=== PATIENT | female | born 1935 | race Two or more races ===

== ENCOUNTER 2018-06-16 16:44 | Emergency (ER) | payer OTHER, BC ==
[2018-06-16 17:46] VITALS: BMI 17.6
--- NOTE | 2018-06-16 17:48 | PDOC ---
Rapid Medical Evaluation Time Seen by Provider: 06/16/18 17:38 Medical Evaluation: Allergies Allergy/AdvReac Type Severity Reaction Status Date / Time codeine Allergy Verified 06/16/18 17:41 06/16/18 17:44 I have performed a brief in-person evaluation of this patient. The patient presents with a chief complaint of: Pt w/ h/o DM, diabetic foot ulcer p/w Left lower extremity swelling and discoloration with cold sensation in left lower extremity, sent by podiatry for admission under Dr. Soto Pertinent physical exam findings: mild swelling LLE with cold sensation, (+) bilateral LE hyperpigmentation I have ordered the following: CBC, CMP, PT/PTT The patient will proceed to the ED for further evaluation. 06/16/18 17:47 Discharge Disposition - Diagnosis Peripheral edema - Referrals Referrals: Christopher Soto MD [Primary Care Provider] - - Patient Instructions - Post Discharge Activity
[2018-06-16 18:04] LABS: BASO % 2.3 % (0-2.0); EOS % 2.5 % (0-4.5); HEMATOCRIT 32.9 % (32.4-45.2); HEMOGLOBIN 10.7 GM/dL (10.7-15.3); LYMPH % 15.7 % (8-40); MCH 30.9 pg (25.7-33.7); MCHC 32.4 g/dl (32.0-36.0); MEAN CELL VOLUME 95.4 fl (80-96); MEAN PLT VOLUME 7.4 fl (7.5-11.1); NEUT % 72.5 % (42.8-82.8); PLATELET COUNT 528 K/MM3 (134-434); RBC 3.45 M/mm3 (3.60-5.2); RDW 18.8 % (11.6-15.6); WHITE BLOOD COUNT 8.3 K/mm3 (4.0-10.0)
[2018-06-16 18:18] LABS: INR 1.49 (0.83-1.09); PROTHROMBIN TIME (PATIENT) 16.8 SEC (9.7-13.0)
[2018-06-16 18:20] LABS: ACTIVATED PTT 30.7 SECONDS (25.2-36.5)
[2018-06-16 18:59] LABS: ALBUMIN 2.9 g/dl (3.4-5.0); ALK PHOS 205 U/L (45-117); ANION GAP 4 MMOL/L (8-16); BILIRUBIN,TOTAL 0.6 mg/dL (0.2-1); BLOOD UREA NITROGEN 16 mg/dL (7-18); CALCIUM 8.5 mg/dL (8.5-10.1); CHLORIDE 105 mmol/L (98-107); CO2 29 mmol/L (21-32); CREATININE 0.5 mg/dL (0.55-1.3); GLUCOSE,RANDOM 155 mg/dL (74-106); POTASSIUM 5.5 mmol/L (3.5-5.1); SGOT/AST 34 U/L (15-37); SGPT/ALT 20 U/L (13-61); SODIUM 139 mmol/L (136-145); TOT PROT 6.1 g/dl (6.4-8.2)
--- NOTE | 2018-06-16 19:16 | PDOC ---
History of Present Illness - General Chief Complaint: Edema Stated Complaint: LEFT FOOT PAIN Time Seen by Provider: 06/16/18 17:38 History Source: Patient Exam Limitations: No Limitations - History of Present Illness Initial Comments: 82yo F with PMH of DM with peripheral neuropathy, stroke, pulmonary HTN, mixed connective tissue disease, Afib, previous PE with IVC filter, hip fracture s/p surgery on 05/30 presenting with left lower extremity swelling, pain, and coldness. Patient has experienced these symptoms since . Patient reports seeing her track production engineer today when he recommended that she come to the ED for coldness to her left leg as compared to her right. She has been immobile and in rehabilitation since her hip fracture about two weeks ago. Patient is able to move her lower limb and endorses normal sensation. She endorses left leg pain upon palpation and movement of the area. Denies fever, chills, chest pain, or shortness of breath. 06/16/18 20:10 Past History - Past Medical History Allergies/Adverse Reactions: Allergies Allergy/AdvReac Type Severity Reaction Status Date / Time codeine Allergy Verified 06/16/18 17:41 Home Medications: Ambulatory Orders Amiodarone HCl 1 tab PO DAILY 10/13/17 Denosumab [Prolia -] 60 mg SQ ASDIR 10/13/17 Exenatide Microspheres [Bydureon] 2 mg SQ WEEKLY 10/13/17 Warfarin Sodium [Coumadin] 5 tab PO DAILY 10/13/17 Zolpidem Tartrate [Ambien] 10 mg PO HS 10/13/17 predniSONE [Deltasone -] 1 tab PO DAILY 10/13/17 Cardiac Disorders: Yes (a fib-on coumadin) CVA: Yes COPD: No - Suicide/Smoking/Psychosocial Hx Smoking History: Never smoked Hx Alcohol Use: No Drug/Substance Use Hx: No Review of Systems - Review of Systems Comments:: Constitutional: no fever, no chills Cardiovascular: no chest pain, no palpitations Respiratory: no cough, no shortness of breath Gastrointestinal: no abdominal pain, no nausea, no vomiting Genitourinary: no dysuria, no frequency Musculoskeletal: +myalgia, +arthralgia Skin: no rash, no itching Neurologic: no headache, no dizziness *Physical Exam - Vital Signs Last Vital Signs Temp Pulse Resp BP Pulse Ox 99.3 F 90 20 146/68 99 06/16/18 17:42 06/16/18 17:42 06/16/18 17:42 06/16/18 17:42 06/16/18 17:42 - Physical Exam Comments: General: Awake, alert, and fully oriented, in no acute distress Head: no signs of trauma Eyes: EOMI, sclera anicteric ENT: moist mucus membranes, Neck: Normal ROM, supple Lungs: Lungs clear, Normal breath sounds Cardio: Regular rhythm, S1 and S2 present Abdomen: Soft, nontender Extremities: Lower extremity edema bilaterally L>R, Skin discoloration b/l from ankles to mid-upper calf; calves tender to palpation; Distal pulses present in all extremities; normal sensation SKIN: Warm, Dry, normal turgor, no rashes or lesions noted Neurologic: Cranial nerves II through XII grossly intact. Normal speech ED Treatment Course - LABORATORY CBC & Chemistry Diagram: 06/16/18 17:56 06/16/18 17:56 - ADDITIONAL ORDERS Additional order review: Laboratory Results 06/16/18 06/16/18 17:56 17:56 PT with INR 16.80 H INR 1.49 H PTT (Actin FS) 30.7 Sodium 139 Potassium 5.5 H Chloride 105 Carbon Dioxide 29 Anion Gap 4 L BUN 16 Creatinine 0.5 L Creat Clearance w eGFR > 60 Random Glucose 155 H Calcium 8.5 Total Bilirubin 0.6 AST 34 ALT 20 Alkaline Phosphatase 205 H Total Protein 6.1 L Albumin 2.9 L 06/16/18 17:56 RBC 3.45 L MCV 95.4 MCHC 32.4 RDW 18.8 H MPV 7.4 L D Neutrophils % 72.5 D Lymphocytes % 15.7 D Monocytes % 7.0 Eosinophils % 2.5 D Basophils % 2.3 H Medical Decision Making - Medical Decision Making 82yo F with left extremity swelling and pain. Distal pulses present. Neurovascularly intact. DVT study of left leg negative. INR noted to be subtherapeutic. 06/16/18 21:40 Laboratory Tests 06/16/18 06/16/18 06/16/18 17:56 17:56 17:56 WBC 8.3 RBC 3.45 L Hgb 10.7 Hct 32.9 D MCV 95.4 MCH 30.9 D MCHC 32.4 RDW 18.8 H Plt Count 528 H D MPV 7.4 L D Absolute Neuts (auto) 6.0 Total Counted 100 Neutrophils % 72.5 D Neutrophils % (Manual) 74.0 Lymphocytes % 15.7 D Lymphocytes % (Manual) 16.0 Monocytes % 7.0 Monocytes % (Manual) 5 Eosinophils % 2.5 D Eosinophils % (Manual) 4.0 Basophils % 2.3 H Basophils % (Manual) 1.0 Nucleated RBC % 0 Platelet Estimate Increased Polychromasia Occasional Macrocytosis 1+ PT with INR 16.80 H INR 1.49 H PTT (Actin FS) 30.7 Sodium 139 Potassium 5.5 H Chloride 105 Carbon Dioxide 29 Anion Gap 4 L BUN 16 Creatinine 0.5 L Creat Clearance w eGFR > 60 Random Glucose 155 H Calcium 8.5 Total Bilirubin 0.6 AST 34 ALT 20 Alkaline Phosphatase 205 H Total Protein 6.1 L Albumin 2.9 L Spoke with Miriam on the phone who is made aware of patient's ED visit and subtherapeutic INR, with recommendation to adjust coumadin dose. Will discharge. Patient amenable to plan. 06/16/18 21:50 *DC/Admit/Observation/Transfer Diagnosis at time of Disposition: Peripheral edema - Discharge Dispostion Disposition: LONG-TERM FACILITY Condition at time of disposition: Stable - Referrals Referrals: Christopher Soto MD [Primary Care Provider] - - Patient Instructions Additional Instructions: You came into the ED for left leg swelling. An ultrasound of your leg showed that there was no blood clot. Lab results showed that your coumadin dose should be adjusted. I spoke on the phone with [facility] who is aware of this. - Post Discharge Activity
--- NOTE | 2018-06-16 19:43 | PDOC ---
Attending Attestation - HPI HPI: 06/16/18 21:22 The patient is an 82-year-old female with past medical history significant for R. sided Stroke, Pulmonary HTN, Prior PE with IVC filter, Pelvic fracture (no surgery) and DM with peripheral neuropathy was sent to the ED by Dr. Bran for evaluation for lower extremity coldness since 06/10/2018. The patient states she is s/p L. femur surgery, following she was sent to rehab. The patient states at rehab, shes been ambulating and doing therapy. The patient reports for the past 5 days shes been experiencing increased coldness to the lower extremities, crampy and tiredness in character, different from baseline. The patient states she was seen at the [facility] office earlier today , who referred to the patient to the ED secondary to the coldness. The patient states she is able to move the leg, but during movement, it feels funny. The patient reports secondary to the risk of falls; patient wasnt placed on Eliquis. The patient states she is taking Mon-Fri 1mg and Sat 2mg of Coumadin. The patient reports prior PE didnt originate in the leg, but they were old clots in the lungs. Denies chest pain, shortness of breath Allergies: Codeine. Social history: No past or present use of tobacco, alcohol or recreational drug use reported. Surgical history: L. femur surgery (05/30/[address] Canseco @ [facility]). IVC filter (2000 @ [place]) PCP: Dr. Soto. Paediatric Thoracic Physician: Dr. Bran - Physicial Exam PE: 06/16/18 21:44 GENERAL: Awake, alert, and fully oriented, in no acute distress HEAD: No signs of trauma EYES: PERRLA, EOMI, sclera anicteric, conjunctiva clear ENT: Auricles normal inspection, hearing grossly normal, nares patent, oropharynx clear without exudates. Moist mucosa NECK: Normal ROM, supple, no lymphadenopathy, JVD, or masses LUNGS: Breath sounds equal, clear to auscultation bilaterally. No wheezes, and no crackles HEART: Regular rate and rhythm, normal S1 and S2, no murmurs, rubs or gallops ABDOMEN: Soft, nontender, normoactive bowel sounds. No guarding, no rebound. No masses EXTREMITIES: (+) PT/DP pulse intact. Chronic discoloration to the tibial region bilaterally without change. Steri-strip to the left lateral thigh, closed, dry intact over the surgical scar. Pitting edema on the calf with mild tenderness. Feet, brisk capillary refill, sensation intact. Muscular strength intact. No clubbing or cyanosis. No cords, erythema, or tenderness NEUROLOGICAL: Cranial nerves II through XII grossly intact. Normal speech. SKIN: Warm, Dry, normal turgor, no rashes or lesions noted. - Medical Decision Making 06/16/18 21:22 Documentation prepared by Diana Johnson, acting as medical scientific officer for Becki Balderrama DO. <Diana Johnson - Last Filed: 06/16/18 21:44> - Resident Resident Name: Heidy Cedeno - ED Attending Attestation I have performed the following: I have examined & evaluated the patient, The case was reviewed & discussed with the resident, I agree w/resident's findings & plan, Exceptions are as noted - Medical Decision Making 06/16/18 19:42 I, Dr. Becki Balderrama, DO, attest that this document has been prepared under my direction and personally reviewed by me in its entirety. I further attest, that it accurately reflects all work, treatment, procedures and medical decision -making performed by me. 06/16/18 20:28 82yo female from rehab with LLE swelling -recent femur sx after a fall and fx on 05/30 -pt states LLE increasing swelling and pain since last -pt denies cp/sob -pt is on coumadin for hx of PE and afib in the past -labs from [facility] show an INR of 1.49 -concern for DVT - will send to US for duplex study LE 06/16/18 21:30 LE duplex is negative 06/16/18 21:50 family updated on results pt requesting to go back [facility] with [facility] to discuss results. 06/16/18 21:51 pt is stable for d/c back to rehab <Becki Balderrama - Last Filed: 06/16/18 21:51>
[2018-06-16 20:32] LABS: MACROCYTOSIS 1+
[2018-06-16 20:33] LABS: PLATELET ESTIMATE INCREASED
[2018-06-16 22:47] VITALS: BP 145/69; PULSE 87; TEMP 98.7
== END 2018-06-16 23:27 ==
LOC: JER 16:44
DX: E11.51 Type 2 diabetes mellitus with diabetic peripheral angiopathy without gangrene (principal); E11.621 Type 2 diabetes mellitus with foot ulcer; L97.509 Non-pressure chronic ulcer of other part of unspecified foot with unspecified severity; I48.91 Unspecified atrial fibrillation; Z79.01 Long term (current) use of anticoagulants; Z86.711 Personal history of pulmonary embolism; I69.851 Hemiplegia and hemiparesis following other cerebrovascular disease affecting right dominant side; I27.20 Pulmonary hypertension, unspecified; Z95.828 Presence of other vascular implants and grafts; Z87.81 Personal history of (healed) traumatic fracture; Z91.81 History of falling
CPT/HCPCS: 36415; 80053; 85025; 85610; 85730; 93971-TC; 99284-25